=== PATIENT | male | born 1940 | race Caucasian/White ===

== ENCOUNTER → 2019-02-08 | Outpatient (REF) | payer MEDICARE, BC ==
[2019-02-08 17:39] LABS: CHOLESTEROL RISK RATIO 3.051 (<5); CREATININE FOR GFR 1.24 MG/DL (0.70-1.30); GLOMERULAR FILTRATION RATE 59.9 (>42); POTASSIUM SERUM 4.8 MEQ/L (3.5-5.1); THYROID STIMULATING HORMONE 1.6 uIU/ML (0.358-3.740)
[2019-02-08 17:43] LABS: FOLATE 21.9 NG/ML
[2019-02-08 18:03] LABS: HEMOGLOBIN A1c 5.8 %
== END ==
LOC: M SFHCCLAY 09:41
PROVIDERS: ATTEND Family Medicine
DX: I25.810 Atherosclerosis of coronary artery bypass graft(s) without angina pectoris (principal); I11.9 Hypertensive heart disease without heart failure; G62.9 Polyneuropathy, unspecified; Z79.899 Other long term (current) drug therapy
CPT/HCPCS: 80048; 80061; 82607; 82746; 83036; 84443; G0463

== ENCOUNTER → 2020-02-27 | Outpatient (REF) | payer MEDICARE, BC ==
[2020-02-27 16:36] LABS: HEMOGLOBIN A1c 5.3 %
[2020-02-27 16:38] LABS: CALCIUM LEVEL 8.9 MG/DL (8.8-10.2); CHOLESTEROL RISK RATIO 3.326 (<5); CREATININE FOR GFR 1.27 MG/DL (0.70-1.30); GLOMERULAR FILTRATION RATE 58.1 (>35); POTASSIUM SERUM 4.6 MEQ/L (3.5-5.1)
== END ==
LOC: M SFHCCLAY 09:42
PROVIDERS: ATTEND Family Medicine
DX: R73.01 Impaired fasting glucose (principal); Z13.220 Encounter for screening for lipoid disorders; Z12.5 Encounter for screening for malignant neoplasm of prostate

== ENCOUNTER → 2020-02-27 | Outpatient (CLI) | payer MEDICARE, BC ==
--- NOTE | 2020-02-27 10:34 | REP ---
INDICATION: M25.641, M25.642, BILATERAL HAND STIFFNESS COMPARISON: None. TECHNIQUE: AP, lateral, bilateral oblique views right and left hand. FINDINGS: Right hand demonstrates moderate arthritic changes to the interphalangeal joints including subchondral sclerosis and joint space narrowing with very minimal spurring primarily involving the 3rd and 5th DIP joints. Moderate degenerative changes at the right wrist include cortical irregularity and chronic subluxation at the 1st carpometacarpal joint as well as increased sclerosis along the radial surface and narrowing of the radiocarpal joint space. Left hand demonstrates moderate early advanced degenerative changes involving the interphalangeal joints including periarticular sclerosis, joint space narrowing, and spurring/gull wing deformity primarily involving the 4th and 5th distal interphalangeal joints. Moderate degenerative changes at the wrist including increased sclerosis to the radial surface and narrowing of the radiocarpal joint space. There is periarticular sclerosis and cortical irregularity at the base of the 1st metatarsal bone with mild subluxation (less pronounced than the contralateral right side). IMPRESSION: Moderate bilateral osteoarthritic degenerative changes <Electronically signed by Chung Mojica > 02/27/20 1038
== END ==
LOC: M CLY 09:54
PROVIDERS: ATTEND Family Medicine
DX: M19.041 Primary osteoarthritis, right hand (principal); M19.042 Primary osteoarthritis, left hand; M25.641 Stiffness of right hand, not elsewhere classified; M25.642 Stiffness of left hand, not elsewhere classified; R73.01 Impaired fasting glucose; Z13.220 Encounter for screening for lipoid disorders; Z12.5 Encounter for screening for malignant neoplasm of prostate; Z79.899 Other long term (current) drug therapy
CPT/HCPCS: 73130; 80048; 80061; 83036; G0103; G0463

== ENCOUNTER → 2020-12-29 | Outpatient (REF) | payer MEDICARE, BC ==
[2020-12-29 15:58] LABS: HEMATOCRIT 41.5 % (42.0-52.0); HEMOGLOBIN 13.3 g/dl (13.5-17.5); MEAN CORPUSCULAR HEMOGLOBIN 31.8 pg (27.0-33.0); MEAN CORPUSCULAR VOLUME 99.3 fl (80.0-96.0); PLATELET COUNT, AUTOMATED 190 10^3/uL (150-450); RED BLOOD COUNT 4.18 10^6/uL (4.30-6.10)
[2020-12-29 17:42] LABS: BILIRUBIN,TOTAL 0.6 MG/DL (0.2-1.0); CALCIUM LEVEL 9.4 MG/DL (8.8-10.2); CREATININE FOR GFR 1.24 MG/DL (0.70-1.30); GLOMERULAR FILTRATION RATE 59.6 (>35); POTASSIUM SERUM 4.9 MEQ/L (3.5-5.1); THYROID STIMULATING HORMONE 1.15 uIU/ML (0.358-3.740); TOTAL PROTEIN 6.7 GM/DL (6.4-8.2)
[2020-12-29 18:34] LABS: HEMOGLOBIN A1c 5.4 %
== END ==
LOC: M SFHCCLAY 09:39
PROVIDERS: ATTEND Physician Assistant
DX: R42 Dizziness and giddiness (principal); Z79.899 Other long term (current) drug therapy; Z23 Encounter for immunization
CPT/HCPCS: 80053; 83036; 84443; 85027; 90682; G0008; G0463

== ENCOUNTER → 2021-10-26 | Outpatient (REF) | payer MEDICARE, BC ==
[2021-10-26 11:48] LABS: BASO # 0.1 10^3/uL (0.0-0.2); EOS # 0.2 10^3/uL (0.0-0.5); EOS % 3.3 % (0.0-3.0); HEMATOCRIT 37.8 % (42.0-52.0); HEMOGLOBIN 12.3 g/dl (13.5-17.5); LYMPH # 1.2 10^3/uL (1.5-5.0); MEAN CORPUSCULAR HEMOGLOBIN 31.8 pg (27.0-33.0); MEAN CORPUSCULAR HGB CONC 32.5 g/dl (32.0-36.5); MEAN CORPUSCULAR VOLUME 97.7 fl (80.0-96.0); MONO # 0.6 10^3/uL (0.0-0.8); MONO % 10.5 % (2.0-8.0); NEUTROPHILS # 3.8 10^3/uL (1.5-8.5); NEUTROPHILS % 64.9 % (36.0-66.0); PLATELET COUNT, AUTOMATED 153 10^3/uL (150-450); RED BLOOD COUNT 3.87 10^6/uL (4.30-6.10); WHITE BLOOD COUNT 5.8 10^3/uL (4.0-10.0)
[2021-10-26 12:23] LABS: ERYTHROCYTE SEDIMENTATION RATE 9 mm/hr (0-20)
[2021-10-26 12:52] LABS: ALBUMIN 3.8 GM/DL (3.2-5.2); ALT/SGPT 31 U/L (12-78); BILIRUBIN,TOTAL 0.7 MG/DL (0.2-1.0); BLOOD UREA NITROGEN 18 MG/DL (7-18); CALCIUM LEVEL 8.8 MG/DL (8.8-10.2); CARBON DIOXIDE LEVEL 28 MEQ/L (21-32); CHLORIDE LEVEL 108 MEQ/L (98-107); CREATININE FOR GFR 1.13 MG/DL (0.70-1.30); GLOMERULAR FILTRATION RATE > 60.0 (>35); GLUCOSE, FASTING 99 MG/DL (70-100); POTASSIUM SERUM 4.7 MEQ/L (3.5-5.1); SODIUM LEVEL 140 MEQ/L (136-145); TOTAL PROTEIN 6.5 GM/DL (6.4-8.2)
== END ==
LOC: M SFHCCLAY 08:04
PROVIDERS: ATTEND Family Medicine
DX: Z95.5 Presence of coronary angioplasty implant and graft (principal); M54.16 Radiculopathy, lumbar region; Z12.5 Encounter for screening for malignant neoplasm of prostate
CPT/HCPCS: 80053; 85025; 85652; G0103

== ENCOUNTER → 2021-10-26 | Outpatient (CLI) | payer MEDICARE, BC | LOC: M CLY 08:11 | PROVIDERS: ATTEND Family Medicine | DX: M16.0 Bilateral primary osteoarthritis of hip (principal); M48.061 Spinal stenosis, lumbar region without neurogenic claudication; M48.07 Spinal stenosis, lumbosacral region; M51.36 Other intervertebral disc degeneration, lumbar region; Z95.5 Presence of coronary angioplasty implant and graft; M54.16 Radiculopathy, lumbar region; Z12.5 Encounter for screening for malignant neoplasm of prostate | CPT/HCPCS: 72110; 72190; 80053; 85025; 85652; G0103 ==

== ENCOUNTER → 2021-10-28 | Outpatient (REF) | payer MEDICARE, BC ==
[2021-10-28 13:12] LABS: FERRITIN 300 NG/ML (26-388); IRON (FE) 74 UG/DL (65-175); PERCENT SATURATION 23.9 % (19.7-50.0); TOTAL IRON BINDING CAPACITY 309 UG/DL (250-450)
[2021-10-28 13:52] LABS: VITAMIN B12 LEVEL 385 PG/ML (247-911)
[2021-10-29 12:25] LABS: FOLATE > 24.0 NG/ML (>5.4)
== END ==
LOC: M SFHCCLAY 08:53
PROVIDERS: ATTEND Family Medicine
DX: D64.9 Anemia, unspecified (principal)

== ENCOUNTER → 2021-11-26 | Outpatient (CLI) | payer MEDICARE, BC | LOC: M RAD 13:16 | PROVIDERS: ATTEND Family Medicine | DX: M51.36 Other intervertebral disc degeneration, lumbar region (principal); M53.86 Other specified dorsopathies, lumbar region ==

== ENCOUNTER 2022-09-13 16:14 | Inpatient (IN) | payer MEDICARE, BC ==
[~2022-09-13] VITALS: Ht 177.8 cm; Wt 87.2 kg
[2022-09-13] MEDS ORDERED: ECOT81TA5 PO (16:32)
[2022-09-13] MEDS ORDERED: ROSU40TA4 PO ×2 (16:32→23:25)
[2022-09-13] MEDS ORDERED: CLOP75TA99 PO ×2 (16:32→23:25)
[2022-09-13] MEDS ORDERED: GABA-283 PO (16:32)
[2022-09-13] MEDS ORDERED: FOLI1TAB11 PO ×2 (16:32→23:25)
[2022-09-13] MEDS ORDERED: RAMI1CAP26 PO ×2 (16:32→23:25)
[2022-09-13] MEDS ORDERED: METO25TA4 PO ×2 (16:32→23:25)
[2022-09-13 17:12] LABS: HEMATOCRIT 40.8 % (42.0-52.0); HEMOGLOBIN 13.5 g/dl (13.5-17.5); MEAN CORPUSCULAR HEMOGLOBIN 31.7 pg (27.0-33.0); MEAN CORPUSCULAR HGB CONC 33.1 g/dl (32.0-36.5); MEAN CORPUSCULAR VOLUME 95.8 fl (80.0-96.0); PLATELET COUNT, AUTOMATED 143 10^3/uL (150-450); RED BLOOD COUNT 4.26 10^6/uL (4.30-6.10); WHITE BLOOD COUNT 7.1 10^3/uL (4.0-10.0)
[2022-09-13 17:37] LABS: ALBUMIN 3.9 G/DL (3.2-5.2); BILIRUBIN,TOTAL 1.6 MG/DL (0.3-1.2); CALCIUM LEVEL 8.4 MG/DL (8.3-10.6); CREATININE FOR GFR 1.29 MG/DL (0.70-1.30); GLOMERULAR FILTRATION RATE 56.8 (>35); POTASSIUM SERUM 4.7 MMOL/L (3.5-5.1); TOTAL PROTEIN 6.4 G/DL (5.7-8.2)
[2022-09-13 18:12] LABS: RSV AMPLIFICATION NEGATIVE (NEGATIVE)
[2022-09-13 18:36] LABS: BILIRUBIN,DIRECT 0.5 MG/DL (<0.4)
[2022-09-13 18:39] LABS: THYROID STIMULATING HORMONE 0.394 uIU/ML (0.55-4.78)
[2022-09-13 20:11] LABS: BASO % 0.4 % (0.0-1.0); HEMATOCRIT 37.8 % (42.0-52.0); HEMOGLOBIN 12.4 g/dl (13.5-17.5); LYMPH # 0.6 10^3/uL (1.5-5.0); LYMPH % 10.3 % (24.0-44.0); MEAN CORPUSCULAR HEMOGLOBIN 31.3 pg (27.0-33.0); MEAN CORPUSCULAR HGB CONC 32.8 g/dl (32.0-36.5); MEAN CORPUSCULAR VOLUME 95.5 fl (80.0-96.0); MONO # 0.5 10^3/uL (0.0-0.8); NEUTROPHILS # 4.6 10^3/uL (1.5-8.5); NEUTROPHILS % 80.4 % (36.0-66.0); PLATELET COUNT, AUTOMATED 135 10^3/uL (150-450); RED BLOOD COUNT 3.96 10^6/uL (4.30-6.10); WHITE BLOOD COUNT 5.7 10^3/uL (4.0-10.0)
[2022-09-13 20:36] LABS: BLOOD UREA NITROGEN 20 MG/DL (9-23); CALCIUM LEVEL 7.9 MG/DL (8.3-10.6); CARBON DIOXIDE LEVEL 29 MMOL/L (20-31); CHLORIDE LEVEL 100 MMOL/L (98-107); CREATININE FOR GFR 1.21 MG/DL (0.70-1.30); GLOMERULAR FILTRATION RATE > 60.0 (>35); GLUCOSE, FASTING 105 MG/DL (74-106); POTASSIUM SERUM 4.5 MMOL/L (3.5-5.1); SODIUM LEVEL 135 MMOL/L (136-145)
[2022-09-13] MEDS ORDERED: ACETAMINOPHEN 325 MG TAB PO ONE (20:45)
[2022-09-13] MEDS ORDERED: MED REC IN PROGRESS XX SCH (22:05)
[2022-09-13] MEDS ORDERED: ASPI-161 PO (23:25)
[2022-09-13] MEDS ORDERED: GABA-282 PO (23:25)
[2022-09-13] MEDS ORDERED: VITMTA PO (23:25)
[2022-09-13] MEDS ORDERED: VITA100093 PO (23:25)
[2022-09-13] MEDS ORDERED: HOME MED LIST COMPLETE! XX SCH (23:30)
[2022-09-14] VITALS (10 sets, daily range): BP systolic 103–148; BP diastolic 57–74; TEMP 98–101.1; O2SAT 93–99
[2022-09-14] MEDS ORDERED: MOM 30ML SUSPENSION UDC PO PRN
[2022-09-14] MEDS ORDERED: LORazepam 2 MG TAB PO PRN (00:10)
[2022-09-14] MEDS ORDERED: ACETAMINOPHEN TAB 650MG DOSE (2X325MG) PO PRN (01:00)
[2022-09-14] MEDS: GABAPENTIN 300 MG CAP PO SCH ×3 (01:54→20:07)
[2022-09-14] MEDS: METOPROLOL TART 25 MG TABLET PO SCH ×3 (01:55→20:09)
[2022-09-14] MEDS: THIAMINE 100 MG TAB PO SCH ×3 (01:56→20:07)
[2022-09-14] MEDS: ROSUVASTATIN 10 MG TAB (CRESTOR) PO SCH ×2 (01:56→20:07)
[2022-09-14] MEDS: PIPERACILLIN/TAZOBACTAM SOD 4.5 GM in D5W MINI-BAG PLUS 50 ML IV SCH ×3 (01:58→12:43)
[2022-09-14] MEDS: ramipriL 5 MG CAP PO SCH ×2 (02:13→20:08)
[2022-09-14 06:09] LABS: HEMATOCRIT 40.6 % (42.0-52.0); HEMOGLOBIN 13.3 g/dl (13.5-17.5); MEAN CORPUSCULAR HEMOGLOBIN 31.5 pg (27.0-33.0); MEAN CORPUSCULAR HGB CONC 32.8 g/dl (32.0-36.5); MEAN CORPUSCULAR VOLUME 96.2 fl (80.0-96.0); PLATELET COUNT, AUTOMATED 133 10^3/uL (150-450); RED BLOOD COUNT 4.22 10^6/uL (4.30-6.10); WHITE BLOOD COUNT 5.7 10^3/uL (4.0-10.0)
[2022-09-14 06:43] LABS: ALBUMIN 3.3 G/DL (3.2-5.2); ALKALINE PHOSPHATASE 59 U/L (46-116); ALT/SGPT 46 U/L (7.0-40); AST/SGOT 48 U/L (<34); BILIRUBIN,TOTAL 1.4 MG/DL (0.3-1.2); BLOOD UREA NITROGEN 19 MG/DL (9-23); CALCIUM LEVEL 8.5 MG/DL (8.3-10.6); CARBON DIOXIDE LEVEL 27 MMOL/L (20-31); CHLORIDE LEVEL 100 MMOL/L (98-107); CREATININE FOR GFR 1.06 MG/DL (0.70-1.30); GLOMERULAR FILTRATION RATE > 60.0 (>35); GLUCOSE, FASTING 102 MG/DL (74-106); MAGNESIUM LEVEL 1.9 MG/DL (1.8-2.4); POTASSIUM SERUM 4.6 MMOL/L (3.5-5.1); SODIUM LEVEL 137 MMOL/L (136-145); TOTAL PROTEIN 5.8 G/DL (5.7-8.2)
[2022-09-14] MEDS ORDERED: MAG SULF 1GM/100ML (MAG RUN) 1 GM in IV 1 EA IV SCH (08:00)
[2022-09-14 08:26] LABS: INR 1.02; LDH LACTATE DEHYDROGENASE 393 U/L (120-246); PROTHROMBIN TIME 13.6 SECONDS (12.5-14.5)
[2022-09-14 08:27] LABS: CPK CREATINE PHOSPHOKINASE 111 U/L (46-171)
[2022-09-14] MEDS ORDERED: DOXYCYCLINE HYCLATE 100 MG in D5W MINI-BAG PLUS 100 ML IV SCH (08:30)
[2022-09-14 08:47] LABS: HEPATITIS B SURFACE ANTIGEN NEGATIVE (NEGATIVE)
[2022-09-14] MEDS: CLOPIDOGREL 75 MG TAB PO SCH (08:49)
[2022-09-14] MEDS: FOLIC ACID 1MG TAB PO SCH (08:49)
[2022-09-14] MEDS: DOCUSATE SODIUM 100MG CAPSULE PO SCH ×2 (08:49→20:06)
[2022-09-14] MEDS: MULTIVITAMINS/MINERALS THERAP 1 TAB PO SCH (08:50)
[2022-09-14] MEDS: DOXYCYCLINE HYCLATE 100MG TABLET PO SCH ×2 (08:50→20:07)
[2022-09-14 09:00] LABS: HIV 1&2 SCREEN NEGATIVE (NEGATIVE)
[2022-09-14] MEDS ORDERED: ENOXAPARIN 40MG/0.4ML SYRINGE (J1650 PER 10MG) SC SCH (09:00)
[2022-09-14] MEDS ORDERED: ASPIRIN 81MG ENTERIC TABLET PO SCH (09:00)
[2022-09-14 09:08] LABS: HEPATITIS C VIRUS ABY INDEX 0.07 INDEX (<0.8)
[2022-09-14 09:09] LABS: HEPATITIS B CORE ANTIBODY IGM NEGATIVE (NEGATIVE)
[2022-09-15 03:37] VITALS: TEMP 97.2
[2022-09-15 05:48] LABS: HEMATOCRIT 35.4 % (42.0-52.0); HEMOGLOBIN 11.9 g/dl (13.5-17.5); MEAN CORPUSCULAR HEMOGLOBIN 31.6 pg (27.0-33.0); MEAN CORPUSCULAR HGB CONC 33.6 g/dl (32.0-36.5); MEAN CORPUSCULAR VOLUME 94.1 fl (80.0-96.0); PLATELET COUNT, AUTOMATED 124 10^3/uL (150-450); RED BLOOD COUNT 3.76 10^6/uL (4.30-6.10); WHITE BLOOD COUNT 6.4 10^3/uL (4.0-10.0)
[2022-09-15 06:00] VITALS: BP 107/55; TEMP 98.4; O2SAT 93
[2022-09-15 06:18] LABS: CALCIUM LEVEL 8.4 MG/DL (8.3-10.6); CREATININE FOR GFR 1.7 MG/DL (0.70-1.30); GLOMERULAR FILTRATION RATE 41.3 (>35); POTASSIUM SERUM 4.8 MMOL/L (3.5-5.1); TOTAL PROTEIN 5.4 G/DL (5.7-8.2)
[2022-09-15 06:51] LABS: ATYPICAL LYMPH 3 % (0-5); LYMPHOCYTES 20 % (16-44); MONOCYTES 10 % (0-5); NEUTROPHILS 61 % (28-66)
[2022-09-15 06:57] LABS: PLATELET ESTIMATE NORMAL (NORMAL)
[2022-09-15] MEDS ORDERED: LR 1,000 ML IV ONE (07:30)
[2022-09-15] MEDS: FOLIC ACID 1MG TAB PO SCH (08:19)
[2022-09-15] MEDS: THIAMINE 100 MG TAB PO SCH ×2 (08:19→21:19)
[2022-09-15] MEDS: DOCUSATE SODIUM 100MG CAPSULE PO SCH ×2 (08:19→21:19)
[2022-09-15] MEDS: CLOPIDOGREL 75 MG TAB PO SCH (08:19)
[2022-09-15] MEDS: MULTIVITAMINS/MINERALS THERAP 1 TAB PO SCH (08:19)
[2022-09-15] MEDS: DOXYCYCLINE HYCLATE 100MG TABLET PO SCH ×2 (08:19→21:19)
[2022-09-15 08:27] VITALS: BP 98/60; TEMP 97.4
[2022-09-15 09:42] VITALS: BP 122/58
[2022-09-15] MEDS: GABAPENTIN 300 MG CAP PO SCH ×2 (11:03→21:19)
[2022-09-15] MEDS: METOPROLOL TART 25 MG TABLET PO SCH ×2 (11:04→21:21)
[2022-09-15 11:51] LABS: BASO % 0.5 % (0.0-1.0); EOS % 0.2 % (0.0-3.0); LYMPH # 1.3 10^3/uL (1.5-5.0); LYMPH % 20.2 % (24.0-44.0); MONO # 0.9 10^3/uL (0.0-0.8); MONO % 13.8 % (2.0-8.0); NEUTROPHILS % 64.5 % (36.0-66.0)
[2022-09-15 14:00] VITALS: BP 106/52; TEMP 98.6; O2SAT 96
[2022-09-15 19:52] LABS: IRON (FE) 26 UG/DL (65-175); PERCENT SATURATION 11.4 % (19.7-50.0); TOTAL IRON BINDING CAPACITY 229 UG/DL (250-425)
[2022-09-15 19:55] LABS: FERRITIN 1591.4 NG/ML (10.5-307.3)
[2022-09-15 19:56] LABS: VITAMIN B12 LEVEL 441 PG/ML (211-911)
[2022-09-15 19:59] LABS: FOLATE > 24.00 NG/ML (>5.4)
[2022-09-15 20:00] VITALS: BP 141/69; TEMP 98.6; O2SAT 96
[2022-09-15] MEDS: ROSUVASTATIN 10 MG TAB (CRESTOR) PO SCH (21:19)
[2022-09-16 01:44] VITALS: TEMP 98.8
[2022-09-16 06:00] VITALS: BP 103/60; TEMP 98.1; O2SAT 95
[2022-09-16 06:00] LABS: HEMATOCRIT 33.5 % (42.0-52.0); HEMOGLOBIN 11.2 g/dl (13.5-17.5); MEAN CORPUSCULAR HEMOGLOBIN 31.1 pg (27.0-33.0); MEAN CORPUSCULAR HGB CONC 33.4 g/dl (32.0-36.5); MEAN CORPUSCULAR VOLUME 93.1 fl (80.0-96.0); PLATELET COUNT, AUTOMATED 147 10^3/uL (150-450); WHITE BLOOD COUNT 4.7 10^3/uL (4.0-10.0)
[2022-09-16 06:30] LABS: ALBUMIN 2.8 G/DL (3.2-5.2); BILIRUBIN,TOTAL 0.6 MG/DL (0.3-1.2); CALCIUM LEVEL 8.3 MG/DL (8.3-10.6); CREATININE FOR GFR 1.4 MG/DL (0.70-1.30); GLOMERULAR FILTRATION RATE 51.7 (>35); POTASSIUM SERUM 3.9 MMOL/L (3.5-5.1); TOTAL PROTEIN 5.1 G/DL (5.7-8.2)
[2022-09-16 06:43] LABS: ATYPICAL LYMPH 2 % (0-5); EOSINOPHILS 1 % (0-3); LYMPHOCYTES 36 % (16-44); METAMYELOCYTES 1 % (0-0); MONOCYTES 7 % (0-5); NEUTROPHILS 52 % (28-66); PLATELET ESTIMATE NORMAL (NORMAL)
[2022-09-16 08:17] VITALS: BP 137/70; TEMP 98.1; O2SAT 95
[2022-09-16] MEDS: DOXYCYCLINE HYCLATE 100MG TABLET PO SCH (08:41)
[2022-09-16 08:42] VITALS: BP 137/70
[2022-09-16] MEDS: METOPROLOL TART 25 MG TABLET PO SCH (08:42)
[2022-09-16] MEDS: MULTIVITAMINS/MINERALS THERAP 1 TAB PO SCH (08:42)
[2022-09-16] MEDS: GABAPENTIN 300 MG CAP PO SCH (08:42)
[2022-09-16] MEDS: DOCUSATE SODIUM 100MG CAPSULE PO SCH (08:42)
[2022-09-16] MEDS: THIAMINE 100 MG TAB PO SCH (08:42)
[2022-09-16] MEDS: CLOPIDOGREL 75 MG TAB PO SCH (08:42)
[2022-09-16] MEDS: FOLIC ACID 1MG TAB PO SCH (08:42)
[2022-09-16 09:14] VITALS: BP 134/70; TEMP 98.1; O2SAT 95
[2022-09-16] MEDS ORDERED: FERR325T3 PO (11:03)
[2022-09-16] MEDS ORDERED: FOLI1TAB11 PO (11:03)
[2022-09-16] MEDS ORDERED: DOXY100T PO (11:03)
[2022-09-16] MEDS ORDERED: RAMI1CAP26 PO (11:26)
[2022-09-17 15:09] LABS: IgG P18 AB Absent (.); IgG P23 AB Absent (.); IgG P28 AB Absent (.); IgG P30 AB Absent (.); IgG P39 AB Absent (.); IgG P41 AB Absent (.); IgG P45 AB Absent (.); IgG P66 AB Absent (.); IgG P93 AB Absent (.); IgM P23 AB Absent (.); IgM P39 AB Absent (.); IgM P41 AB Absent (.); LYME IgG WB INTERPRETATION Negative (.); LYME IgM WB INTERPRETATION Negative (.); LYME PCR FOR BODY FLUID Negative (Negative)
[2022-09-17 17:07] LABS: CYTOMEGALOVIRUS IgG ANTIBODY <0.60 U/mL (0.00-0.59); CYTOMEGALOVIRUS IgM ANTIBODY <30.0 AU/mL (0.0-29.9); EBV VIRAL CAPSID AG IgM <36.0 U/mL (0.0-35.9)
== END 2022-09-16 12:33 | disposition home or self-care (01) | DRG 868 ==
LOC: M ED 16:14 → M ED INP 23:56 → M PCU 09-14 00:59 → M MSPAV 09-14 15:30
PROVIDERS: ADMIT Family Medicine; ATTEND Student in an Organized Health Care Education/Training Program
DX: A79.82 Anaplasmosis [A. phagocytophilum] (principal); N17.9 Acute kidney failure, unspecified; R50.9 Fever, unspecified; D64.9 Anemia, unspecified; R53.1 Weakness; I25.10 Atherosclerotic heart disease of native coronary artery without angina pectoris; I12.9 Hypertensive chronic kidney disease with stage 1 through stage 4 chronic kidney disease, or unspecified chronic kidney disease; D69.6 Thrombocytopenia, unspecified; E78.5 Hyperlipidemia, unspecified; N18.2 Chronic kidney disease, stage 2 (mild); Z95.5 Presence of coronary angioplasty implant and graft; Z79.82 Long term (current) use of aspirin; Z79.02 Long term (current) use of antithrombotics/antiplatelets; Z79.899 Other long term (current) drug therapy

== ENCOUNTER → 2022-10-08 | Outpatient (REF) | payer MEDICARE, BC ==
[~2022-10-08] MED LIST: ASPI-161 PO; CLOP75TA99 PO; DOXY100T PO; ECOT81TA5 PO; FERR325T3 PO; FOLI1TAB11 PO; GABA-282 PO; GABA-284 PO; METO25TA4 PO; RAMI1CAP26 PO; ROSU40TA4 PO; VITA100093 PO; VITMTA PO
[2022-10-08 17:35] LABS: BASO % 0.7 % (0.0-1.0); EOS # 0.2 10^3/uL (0.0-0.5); EOS % 3.3 % (0.0-3.0); HEMATOCRIT 33.7 % (42.0-52.0); HEMOGLOBIN 10.6 g/dl (13.5-17.5); LYMPH # 1.5 10^3/uL (1.5-5.0); LYMPH % 24.6 % (24.0-44.0); MEAN CORPUSCULAR HEMOGLOBIN 31.1 pg (27.0-33.0); MEAN CORPUSCULAR HGB CONC 31.5 g/dl (32.0-36.5); MEAN CORPUSCULAR VOLUME 98.8 fl (80.0-96.0); MONO # 0.7 10^3/uL (0.0-0.8); MONO % 10.8 % (2.0-8.0); NEUTROPHILS # 3.7 10^3/uL (1.5-8.5); NEUTROPHILS % 59.9 % (36.0-66.0); PLATELET COUNT, AUTOMATED 225 10^3/uL (150-450); RED BLOOD COUNT 3.41 10^6/uL (4.30-6.10); WHITE BLOOD COUNT 6.1 10^3/uL (4.0-10.0)
[2022-10-08 17:57] LABS: ALBUMIN 3.6 G/DL (3.2-5.2); ALKALINE PHOSPHATASE 43 U/L (46-116); ALT/SGPT 27 U/L (7.0-40); AST/SGOT 27 U/L (<34); BILIRUBIN,TOTAL 0.7 MG/DL (0.3-1.2); BLOOD UREA NITROGEN 17 MG/DL (9-23); CALCIUM LEVEL 8.6 MG/DL (8.3-10.6); CARBON DIOXIDE LEVEL 29 MMOL/L (20-31); CHLORIDE LEVEL 104 MMOL/L (98-107); CHOLESTEROL LEVEL 138 MG/DL (<200); CHOLESTEROL RISK RATIO 2.52 (<5); CREATININE FOR GFR 1.04 MG/DL (0.70-1.30); GLOMERULAR FILTRATION RATE > 60.0 (>35); GLUCOSE, FASTING 96 MG/DL (74-106); HDL CHOLESTEROL 54.6 MG/DL (>40); LDL CHOLESTEROL 38.2 MG/DL (<100); NON-HDL-C 83.4 MG/DL; POTASSIUM SERUM 4.6 MMOL/L (3.5-5.1); SODIUM LEVEL 141 MMOL/L (136-145); TOTAL PROTEIN 5.9 G/DL (5.7-8.2); TRIGLYCERIDES LEVEL 226 MG/DL (<150)
== END ==
LOC: M SFHCCLAY 11:32
PROVIDERS: ATTEND Family Medicine
DX: J40 Bronchitis, not specified as acute or chronic (principal); I11.9 Hypertensive heart disease without heart failure; Z12.5 Encounter for screening for malignant neoplasm of prostate; Z95.5 Presence of coronary angioplasty implant and graft
CPT/HCPCS: 80053; 80061; 85025; G0103

== ENCOUNTER → 2022-11-05 | Outpatient (REF) | payer MEDICARE, BC ==
[2022-11-05 18:08] LABS: BASO # 0.1 10^3/uL (0.0-0.2); BASO % 0.9 % (0.0-1.0); EOS # 0.2 10^3/uL (0.0-0.5); EOS % 2.3 % (0.0-3.0); HEMATOCRIT 40.4 % (42.0-52.0); HEMOGLOBIN 12.8 g/dl (13.5-17.5); LYMPH # 1.7 10^3/uL (1.5-5.0); LYMPH % 20.5 % (24.0-44.0); MEAN CORPUSCULAR HEMOGLOBIN 31.3 pg (27.0-33.0); MEAN CORPUSCULAR HGB CONC 31.7 g/dl (32.0-36.5); MEAN CORPUSCULAR VOLUME 98.8 fl (80.0-96.0); MONO # 0.8 10^3/uL (0.0-0.8); NEUTROPHILS # 5.4 10^3/uL (1.5-8.5); NEUTROPHILS % 65.7 % (36.0-66.0); PLATELET COUNT, AUTOMATED 229 10^3/uL (150-450); RED BLOOD COUNT 4.09 10^6/uL (4.30-6.10); WHITE BLOOD COUNT 8.1 10^3/uL (4.0-10.0)
[2022-11-05 18:35] LABS: IRON (FE) 74 UG/DL (65-175)
[2022-11-05 18:37] LABS: FOLATE > 24.00 NG/ML (>5.4); PERCENT SATURATION 20.4 % (19.7-50.0); TOTAL IRON BINDING CAPACITY 363 UG/DL (250-425)
[2022-11-05 18:38] LABS: VITAMIN B12 LEVEL 491 PG/ML (211-911)
== END ==
LOC: M SFHCCLAY 11:33
PROVIDERS: ATTEND Family Medicine
DX: D64.9 Anemia, unspecified (principal); A77.49 Other ehrlichiosis

== ENCOUNTER → 2022-11-16 | Outpatient (CLI) | payer MEDICARE, BC | LOC: M CLY 09:39 | PROVIDERS: ATTEND Family Medicine | DX: G89.29 Other chronic pain (principal); M54.50 Low back pain, unspecified ==

== ENCOUNTER → 2022-12-28 | Outpatient (REF) | payer MEDICARE, BC ==
[2022-12-28 18:02] LABS: BASO # 0.1 10^3/uL (0.0-0.2); BASO % 0.8 % (0.0-1.0); EOS # 0.1 10^3/uL (0.0-0.5); EOS % 1.9 % (0.0-3.0); HEMATOCRIT 42.7 % (42.0-52.0); LYMPH # 1.9 10^3/uL (1.5-5.0); LYMPH % 24.9 % (24.0-44.0); MEAN CORPUSCULAR HEMOGLOBIN 31.3 pg (27.0-33.0); MEAN CORPUSCULAR HGB CONC 32.8 g/dl (32.0-36.5); MEAN CORPUSCULAR VOLUME 95.3 fl (80.0-96.0); MONO # 0.9 10^3/uL (0.0-0.8); MONO % 12.2 % (2.0-8.0); NEUTROPHILS # 4.5 10^3/uL (1.5-8.5); NEUTROPHILS % 59.7 % (36.0-66.0); PLATELET COUNT, AUTOMATED 211 10^3/uL (150-450); RED BLOOD COUNT 4.48 10^6/uL (4.30-6.10); WHITE BLOOD COUNT 7.5 10^3/uL (4.0-10.0)
== END ==
LOC: M SFHCCLAY 09:07
PROVIDERS: ATTEND Family Medicine
DX: D64.9 Anemia, unspecified (principal)

== ENCOUNTER → 2023-01-21 | Outpatient (REF) | payer MEDICARE, BC ==
[2023-01-21 17:21] LABS: BASO # 0.1 10^3/uL (0.0-0.2); BASO % 0.9 % (0.0-1.0); EOS # 0.2 10^3/uL (0.0-0.5); EOS % 1.9 % (0.0-3.0); HEMATOCRIT 40.9 % (42.0-52.0); HEMOGLOBIN 13.3 g/dl (13.5-17.5); LYMPH # 1.7 10^3/uL (1.5-5.0); MEAN CORPUSCULAR HEMOGLOBIN 30.8 pg (27.0-33.0); MEAN CORPUSCULAR HGB CONC 32.5 g/dl (32.0-36.5); MEAN CORPUSCULAR VOLUME 94.7 fl (80.0-96.0); MONO # 0.7 10^3/uL (0.0-0.8); MONO % 8.4 % (2.0-8.0); NEUTROPHILS # 5.1 10^3/uL (1.5-8.5); PLATELET COUNT, AUTOMATED 188 10^3/uL (150-450); RED BLOOD COUNT 4.32 10^6/uL (4.30-6.10); WHITE BLOOD COUNT 7.7 10^3/uL (4.0-10.0)
[2023-01-21 17:26] LABS: INR 1.08; PROTHROMBIN TIME 13.7 SECONDS (12.5-14.5)
[2023-01-21 17:27] LABS: PARTIAL THROMBOPLASTIN TIME 25.2 SECONDS (24.8-34.2)
[2023-01-21 17:44] LABS: BLOOD UREA NITROGEN 22 MG/DL (9-23); CALCIUM LEVEL 8.9 MG/DL (8.3-10.6); CARBON DIOXIDE LEVEL 30 MMOL/L (20-31); CHLORIDE LEVEL 102 MMOL/L (98-107); CREATININE FOR GFR 1.16 MG/DL (0.70-1.30); GLOMERULAR FILTRATION RATE > 60.0 (>35); GLUCOSE, FASTING 144 MG/DL (74-106); POTASSIUM SERUM 4.2 MMOL/L (3.5-5.1); SODIUM LEVEL 141 MMOL/L (136-145)
== END ==
LOC: M SFHCCLAY 12:03
PROVIDERS: ATTEND Family Medicine
DX: I25.810 Atherosclerosis of coronary artery bypass graft(s) without angina pectoris (principal); I11.9 Hypertensive heart disease without heart failure; M54.50 Low back pain, unspecified; Z79.01 Long term (current) use of anticoagulants

== ENCOUNTER → 2023-02-22 | Outpatient (REF) | payer MEDICARE, BC | LOC: M LAB REF 13:59 | PROVIDERS: ATTEND Surgery | DX: C44.729 Squamous cell carcinoma of skin of left lower limb, including hip (principal) ==

== ENCOUNTER → 2023-03-15 | Outpatient (CLI) | payer MEDICARE, BC | LOC: M CLY 09:43 | PROVIDERS: ATTEND Family Medicine | DX: M85.88 Other specified disorders of bone density and structure, other site (principal); M51.34 Other intervertebral disc degeneration, thoracic region; M47.812 Spondylosis without myelopathy or radiculopathy, cervical region ==

== ENCOUNTER → 2023-06-15 | Outpatient (CLI) | payer MEDICARE, BC ==
[~2023-06-15] MED LIST changes: -ASPI-161 PO; +ASPI-615 PO
== END ==
LOC: M CLY 12:15
PROVIDERS: ATTEND Family Medicine
DX: J98.11 Atelectasis (principal)

== ENCOUNTER → 2023-08-03 | Outpatient (CLI) | payer MEDICARE, BC ==
[~2023-08-03] MED LIST changes: +RAMI10CA64 PO; -RAMI1CAP26 PO; -ROSU40TA4 PO; +ROSU40TA63 PO
== END ==
LOC: M RAD 17:01
PROVIDERS: ATTEND Family Medicine
DX: K40.20 Bilateral inguinal hernia, without obstruction or gangrene, not specified as recurrent (principal); K42.9 Umbilical hernia without obstruction or gangrene

== ENCOUNTER → 2023-08-04 | Outpatient (REF) | payer MEDICARE, BC ==
[2023-08-04 19:03] LABS: BLOOD UREA NITROGEN 22 MG/DL (9-23); CALCIUM LEVEL 9.3 MG/DL (8.3-10.6); CARBON DIOXIDE LEVEL 32 MMOL/L (20-31); CHLORIDE LEVEL 104 MMOL/L (98-107); CREATININE FOR GFR 1.12 MG/DL (0.70-1.30); GLOMERULAR FILTRATION RATE > 60.0 (>35); GLUCOSE, FASTING 68 MG/DL (74-106); POTASSIUM SERUM 4.4 MMOL/L (3.5-5.1); SODIUM LEVEL 141 MMOL/L (136-145)
== END ==
LOC: M SFHCCLAY 10:14
PROVIDERS: ATTEND Family Medicine
DX: R06.2 Wheezing (principal)

== ENCOUNTER → 2023-08-11 | Outpatient (CLI) | payer MEDICARE, BC ==
[~2023-08-11] MED LIST changes: +GASTROGRAFIN SOLUTION 30ML As Ordered ONE; +ISOVUE-370 76% 100ML VIAL As Ordered ONE
== END ==
LOC: M RAD 13:16
PROVIDERS: ATTEND Family Medicine
DX: K40.20 Bilateral inguinal hernia, without obstruction or gangrene, not specified as recurrent (principal); K42.9 Umbilical hernia without obstruction or gangrene
CPT/HCPCS: 74177; Q9963; Q9967

== ENCOUNTER 2023-10-20 10:20 | Day surgery (SDC) | payer MEDICARE, BC ==
[~2023-10-20] VITALS: Ht 177.8 cm; Wt 90.2 kg
[~2023-10-20 10:20] MED LIST changes: +CLOP75TA2 PO; +D-3-50003 PO; -GASTROGRAFIN SOLUTION 30ML As Ordered ONE; -ISOVUE-370 76% 100ML VIAL As Ordered ONE; +MAGN400C2 PO; +METO1TAB87 PO
[2023-10-20] MEDS ORDERED: LR 1,000 ML IV SCH ×2 (11:10→16:35)
[2023-10-20] MEDS ORDERED: ROCURONIUM BROMIDE 50MG/5ML VIAL As Ordered ONE (12:23)
[2023-10-20] MEDS ORDERED: ONDANSETRON 4MG 2ML VIAL As Ordered ONE (12:23)
[2023-10-20] MEDS ORDERED: LIDOCAINE 2% 100MG/5ML SDV (FOR ANES.) As Ordered ONE (12:23)
[2023-10-20] MEDS ORDERED: propofoL 200 MG/20 ML VIAL As Ordered ONE (12:23)
[2023-10-20] MEDS ORDERED: fentaNYL 100 MCG/2 ML INJECTION As Ordered ONE (12:23)
[2023-10-20] MEDS: ceFAZolin SOD 2 GM in IV 1 EA IV ONE (13:55)
[2023-10-20] MEDS: HEPARIN SOD (PORCINE) 5000UNITS/ML 1ML VIAL/SYRINGE SQ ONE (14:02)
[2023-10-20] MEDS ORDERED: ACETAMINOPHEN 1000MG 100ML IV BAG As Ordered ONE (14:21)
[2023-10-20] MEDS ORDERED: SUGAMMADEX SODIUM 500 MG/5 ML VIAL (BRIDION) As Ordered ONE (14:21)
[2023-10-20] MEDS ORDERED: KETOROLAC 60MG 2ML VIAL As Ordered ONE (14:21)
[2023-10-20] MEDS ORDERED: HYDROMORPHONE HCL 0.5 MG/ 0.5 ML SYRINGE IV PRN (16:35)
[2023-10-20] MEDS ORDERED: ONDANSETRON 4MG 2ML VIAL IV PRN (16:35)
[2023-10-20] MEDS ORDERED: fentaNYL 100 MCG/2 ML INJECTION IV PRN (16:35)
[2023-10-20] MEDS ORDERED: oxyCODONE 5MG TAB PO PRN (16:35)
[2023-10-20 18:45] VITALS: BP 157/70; TEMP 97.3; O2SAT 97
== END 2023-10-20 18:50 | disposition home or self-care (01) ==
LOC: M SDC 10:20
PROVIDERS: ATTEND Surgery
DX: K40.20 Bilateral inguinal hernia, without obstruction or gangrene, not specified as recurrent (principal); K42.9 Umbilical hernia without obstruction or gangrene; I25.10 Atherosclerotic heart disease of native coronary artery without angina pectoris; I10 Essential (primary) hypertension; J43.9 Emphysema, unspecified; E78.00 Pure hypercholesterolemia, unspecified; Z79.02 Long term (current) use of antithrombotics/antiplatelets; Z79.82 Long term (current) use of aspirin; Z79.899 Other long term (current) drug therapy; Z95.5 Presence of coronary angioplasty implant and graft; Z95.1 Presence of aortocoronary bypass graft; Z85.828 Personal history of other malignant neoplasm of skin; Z87.891 Personal history of nicotine dependence
CPT/HCPCS: 49591; 49650; 88300; C1781; J0131; J0665; J0690; J1100; J1885; J2405; J3010

== ENCOUNTER → 2023-11-09 | Outpatient (REF) | payer MEDICARE, BC ==
[~2023-11-09] MED LIST changes: -ROSU40TA63 PO; +ROSU40TA81 PO
[2023-11-09 13:13] LABS: HEMATOCRIT 39.2 % (42.0-52.0); HEMOGLOBIN 12.8 g/dl (13.5-17.5); MEAN CORPUSCULAR HEMOGLOBIN 31.3 pg (27.0-33.0); MEAN CORPUSCULAR HGB CONC 32.7 g/dl (32.0-36.5); MEAN CORPUSCULAR VOLUME 95.8 fl (80.0-96.0); PLATELET COUNT, AUTOMATED 219 10^3/uL (150-450); RED BLOOD COUNT 4.09 10^6/uL (4.30-6.10); WHITE BLOOD COUNT 5.5 10^3/uL (4.0-10.0)
[2023-11-09 13:25] LABS: ALBUMIN 3.8 G/DL (3.2-5.2); ALKALINE PHOSPHATASE 62 U/L (46-116); ALT/SGPT 21 U/L (7.0-40); AST/SGOT 19 U/L (<34); BILIRUBIN,TOTAL 0.5 MG/DL (0.3-1.2); BLOOD UREA NITROGEN 19 MG/DL (9-23); CALCIUM LEVEL 9.7 MG/DL (8.3-10.6); CARBON DIOXIDE LEVEL 29 MMOL/L (20-31); CHLORIDE LEVEL 106 MMOL/L (98-107); CHOLESTEROL LEVEL 162 MG/DL (<200); CREATININE FOR GFR 1.18 MG/DL (0.70-1.30); GLOMERULAR FILTRATION RATE > 60.0 (>35); GLUCOSE, FASTING 99 MG/DL (74-106); HDL CHOLESTEROL 50.6 MG/DL (>40); LDL CHOLESTEROL 80.6 MG/DL (<100); NON-HDL-C 111.4 MG/DL; POTASSIUM SERUM 4.8 MMOL/L (3.5-5.1); SODIUM LEVEL 141 MMOL/L (136-145); TOTAL PROTEIN 6.5 G/DL (5.7-8.2); TRIGLYCERIDES LEVEL 154 MG/DL (<150)
== END ==
LOC: M SFHCCLAY 07:59
PROVIDERS: ATTEND Family Medicine
DX: Z95.5 Presence of coronary angioplasty implant and graft (principal); I25.810 Atherosclerosis of coronary artery bypass graft(s) without angina pectoris; J40 Bronchitis, not specified as acute or chronic; I11.9 Hypertensive heart disease without heart failure; Z12.5 Encounter for screening for malignant neoplasm of prostate
CPT/HCPCS: 80053; 80061; 85027; G0103

== ENCOUNTER → 2024-02-17 | Outpatient (CLI) | payer MEDICARE, BC ==
[~2024-02-17] MED LIST changes: +GABA-1172 PO; -GABA-282 PO
== END ==
LOC: M CLY 09:42
PROVIDERS: ATTEND Nurse Practitioner Family
DX: R05.9 Cough, unspecified (principal); R06.2 Wheezing

== ENCOUNTER → 2024-02-21 | Outpatient (REF) | payer MEDICARE, BC ==
[2024-02-21 11:38] LABS: CHOLESTEROL RISK RATIO 2.85 (<5); HDL CHOLESTEROL 61.7 MG/DL (>40); LDL CHOLESTEROL 69.1 MG/DL (<100); NON-HDL-C 114.3 MG/DL
== END ==
LOC: M SFHCCLAY 08:20
PROVIDERS: ATTEND Nurse Practitioner Family
DX: Z95.5 Presence of coronary angioplasty implant and graft (principal); R05.9 Cough, unspecified; R06.2 Wheezing; E78.00 Pure hypercholesterolemia, unspecified

== ENCOUNTER → 2024-03-06 | Outpatient (REF) | payer MEDICARE, BC | LOC: M SFHCCLAY 11:25 | PROVIDERS: ATTEND Nurse Practitioner Family | DX: R05.3 Chronic cough (principal) ==

== ENCOUNTER → 2024-09-24 | Outpatient (REF) | payer MEDICARE, BC ==
[2024-09-24 18:33] LABS: FREE T4 1.25 NG/DL (0.89-1.76)
[2024-09-24 18:37] LABS: VITAMIN B12 LEVEL 566 PG/ML (211-911)
[2024-09-24 18:38] LABS: ALT/SGPT 23 U/L (7.0-40); AST/SGOT 26 U/L (<34); CALCIUM LEVEL 9.0 MG/DL (8.3-10.6); CARBON DIOXIDE LEVEL 28 MMOL/L (20-31); CHLORIDE LEVEL 100 MMOL/L (98-107); CREATININE FOR GFR 1.21 MG/DL (0.70-1.30); GLOMERULAR FILTRATION RATE 59.0 (>35); POTASSIUM SERUM 4.8 MMOL/L (3.5-5.1); SODIUM LEVEL 140 MMOL/L (136-145)
[2024-09-24 18:41] LABS: BASO # 0.1 10^3/uL (0.0-0.2); BASO % 0.9 % (0.0-1.0); EOS # 0.2 10^3/uL (0.0-0.5); EOS % 2.4 % (0.0-3.0); LYMPH # 1.3 10^3/uL (1.5-5.0); LYMPH % 17.0 % (24.0-44.0); MONO # 0.8 10^3/uL (0.0-0.8); MONO % 10.3 % (2.0-8.0); NEUTROPHILS # 5.4 10^3/uL (1.5-8.5); NEUTROPHILS % 68.8 % (36.0-66.0); PLATELET COUNT, AUTOMATED 217 10^3/uL (150-450)
[2024-09-24 18:47] LABS: ERYTHROCYTE SEDIMENTATION RATE 21 mm/hr (0-20)
== END ==
LOC: M LABDRAWC 17:35
PROVIDERS: ATTEND Psychiatry & Neurology Neurology
DX: E07.9 Disorder of thyroid, unspecified (principal)

== ENCOUNTER → 2025-01-03 | Outpatient (REF) | payer MEDICARE, BC | LOC: M SFHCDERM 17:37 | PROVIDERS: ATTEND Nurse Practitioner Family | DX: C44.42 Squamous cell carcinoma of skin of scalp and neck (principal) ==

== ENCOUNTER → 2025-01-29 | Outpatient (REF) | payer MEDICARE, BC ==
[2025-01-29 13:01] LABS: PSA SCREENING 0.81 NG/ML (< 4.00)
[2025-01-29 13:05] LABS: BASO # 0.1 10^3/uL (0.0-0.2); BASO % 0.8 % (0.0-1.0); EOS # 0.1 10^3/uL (0.0-0.5); EOS % 1.7 % (0.0-3.0); LYMPH # 1.7 10^3/uL (1.5-5.0); LYMPH % 23.6 % (24.0-44.0); MONO # 0.7 10^3/uL (0.0-0.8); MONO % 9.3 % (2.0-8.0); NEUTROPHILS # 4.5 10^3/uL (1.5-8.5); NEUTROPHILS % 63.6 % (36.0-66.0); PLATELET COUNT, AUTOMATED 187 10^3/uL (150-450)
[2025-01-29 13:06] LABS: FREE T4 1.25 NG/DL (0.89-1.76)
[2025-01-29 13:07] LABS: ALT/SGPT 27.0 U/L (7.0-40); AST/SGOT 26.0 U/L (<34); CALCIUM LEVEL 8.5 MG/DL (8.3-10.6); CARBON DIOXIDE LEVEL 31.0 MMOL/L (20-31); CHLORIDE LEVEL 104.0 MMOL/L (98-107); CHOLESTEROL LEVEL 170.0 MG/DL (<200); CHOLESTEROL RISK RATIO 2.72 (<5); CREATININE FOR GFR 1.19 MG/DL (0.70-1.30); GLOMERULAR FILTRATION RATE 59.9 (>35); LDL CHOLESTEROL 84.5 MG/DL (<100); NON-HDL-C 107.7 MG/DL; POTASSIUM SERUM 4.3 MMOL/L (3.5-5.1); SODIUM LEVEL 143.0 MMOL/L (136-145); TRIGLYCERIDES LEVEL 116.0 MG/DL (<150)
[2025-01-29 13:16] LABS: ESTIMATED AVERAGE GLUCOSE 117.0 MG/DL (60-110)
== END ==
LOC: M SFHCCLAY 08:24
PROVIDERS: ATTEND Nurse Practitioner Family
DX: U09.9 Post COVID-19 condition, unspecified (principal); R93.89 Abnormal findings on diagnostic imaging of other specified body structures; Z95.5 Presence of coronary angioplasty implant and graft; M79.18 Myalgia, other site; I25.810 Atherosclerosis of coronary artery bypass graft(s) without angina pectoris; G62.9 Polyneuropathy, unspecified; R05.9 Cough, unspecified; R06.2 Wheezing; Z12.5 Encounter for screening for malignant neoplasm of prostate; J44.9 Chronic obstructive pulmonary disease, unspecified; R41.3 Other amnesia; H91.93 Unspecified hearing loss, bilateral; M54.50 Low back pain, unspecified; G89.29 Other chronic pain; Z79.899 Other long term (current) drug therapy
CPT/HCPCS: 80053; 80061; 83036; 84439; 84443; 85025; G0103